=== PATIENT | male | born 1945 | race Caucasian/White ===

== ENCOUNTER 2017-12-19 08:30 | Outpatient (RCR) | payer MEDICARE, SELFPAY ==
--- NOTE | 2017-11-07 15:50 | HP.PTEVAL_ITS ---
Patient's Visit Information MAHESH LOZANO is a 72 year old M referred to Physical Therapy by Ivy Montanez with a diagnosis of RIGHT SHOULDER PAIN. Date of Evaluation: 11/07/17 Physical Therapist: Monique Whitaker - Visit Plan Frequency: 2-3x /Week Duration: 4-6 Weeks Plan: RIGHT SHOULDER US, MH AND CP NEEDED. POSTURE CORRECTION/STRENGTHENING , INSTRUCTION IN APPROPRIATE BODY MECHANICS AND ACTIVITY MODIFICATIONS. RIGHT UE ROM, STRETCHING, MOBILIZATION AND STRENGTHENING. HEP INSTRUCTION. - Subjective Subjective: Diagnosis: RIGHT SHOULDER PAIN. Work/Leisure: RETIRED. LIKES TO GOLF. Disability: NO. Present symptoms: RIGHT LATERAL UPPER ARM/SHOULDER. ABOUT A WEEK AGO WAS GETTING SOME UPPER ARM TINGLING BUT ONLY ONCE. PAIN IS FLEETING. Present since: ABOUT 18 TO 24 MONTHS AGO. Pain Scale: WORST 5/10, LEAST 0/10. Currently: 0/10. Commenced as a result of: STRETCHING OVER HEAD WITH A GOLF CLUB. Symptoms at onset: SHARP RIGHT SHOULDER PAIN. Worse: STRETCHING OVER-HEAD, PUTTING ARM UP ON THE BACK OF ANOTHER CHAIR, REACHING UP AND BACK, TRYING TO ROTATE ARM TO WASH BACK. Better: REST AND AVOIDING AGGREVATING POSITIONS. Disturbed sleep: YES. Previous history/Previous treatment: NONE. NO INJECTIONS. NO RIGHT SHOULDER SURGERY. Dizziness: NO. Tinnitis: NO. Nausea: NO. Difficulty Swollowing: NO. Gait: NORMAL. Accidents: NO. Unexplained weight loss: NO. Imaging: NO. PMH: HISTORY OF DO NECK MANIPULATIONS OVER THE YEARS - DECREASED NECK MOBILITY. IN [facility] HE[facility] OTHERWISE. OTHER: RECENT EPISODE OF BRONCHITIS FOR WHICH HE WAS GIVEN PREDNISONE ABOUT 10 DAYS AGO FOR 5 DAYS. THE PREDNISONE ACTUALLY HELPED HIS SHOULDER PAIN SOME. - Objective Sitting Posture: FAIR. Active Correction of posture: NE. Other Observations : INDEP GAIT AND TRANSFERS. Motor deficit: RIGHT ROTATOR CUFF WEAKNESS COMPARED TO LEFT. UNALBE TO FULLY ELEVATE RIGHT SHOULDER. MID RANGE TESTING OF ROTATOR CUFF WITH MMT'ING IS 4/5. STRONG VANESSA MOBILE HEAVY EQUIPMENT MECHANIC STRENGTH > 90 LBS. NO C/ O INCREASED PAIN WITH MOBILE HEAVY EQUIPMENT MECHANIC STRENGTH TESTING BUT RIGHT SHOULDER MMT'ING DOES PROVOKE RIGHT LATERAL ARM PAIN DISTAL TO AC JT. LUE STRENGTH IS 5/5. RIGHT ELBOW 5/5. Sensory deficit: NO. ROM deficit: SUPINE RIGHT SHOULDER PASSIVE FLEX 135 DEG, ABD 130 DEG, IR 45 DEG AND ER 45 DEG WITH 90 DEG ABD. Cervical Mvmt Loss: Flex: NIL. Pro: NIL. Ext: MOD TO TOSHIA. Ret: TOSHIA. RSB: TOSHIA. LSB: TOSHIA. R Rot: MOD. L Rot: MOD. PATIENT REPORTS STIFFNESS BUT NOT PAIN WITH CERVICAL ROM TESTING. Postural strength: FAIR. Palpation: MILD TENDERNESS RIGHT DELTOID REGION. - Goals Goal 1:: DECREASE C/O RIGHT SHOULDER PAIN Goal Time Frame: 4-6 Weeks Goal 2:: INCREASE PAINFREE RIGHT SHOULDER ROM Goal Time Frame: 4-6 Weeks Goal 3:: INCREASE RIGHT SHOULDER FUNCTIONAL STRENGTH Goal Time Frame: 4-6 Weeks Goal 4:: INDEP HEP Goal Time Frame: 4-6 Weeks - Rehabilitation Potential Rehabilitation Potential: Good - Anticipated Interventions Patient/Client Instruction: Educate patient on: Condition, Plan of Care, Risk Factors, Benefits of Fitness Program For the Purpose of:: To improve self management Therapeutic Exercise to Include: Strength training, Body mechanics, Postural training, Flexibilty training, Passive ROM, Active ROM, Scapular Strength/ Stabilization For the Purpose of:: To improve ability to perform ADL's, To improve ability of physical actions for home/community/work/leisure Manual Therapy Techniques to Include: Mobilization, Soft tissue mobilization Comment: RIGHT SHOULDER Cryotherapy (ice pack, ice massage): Yes Thermo therapy (hot pack): Yes Ultrasound (thermal/non thermal): Yes For the Purpose of:: To decrease pain, To decrease swelling/inflammation, To increase ROM, To improve nutrient delivery to tissue Thank you for the opportunity to evaluate your patient. For Medicare and Medicare HMO plans, please review the plan of care and approve it. It will need to be FAXED BACK to us at [phone] for Medicare purposes. Please let me know if there are questions or concerns regarding this plan of care. Physician Signature: Date:
--- NOTE | 2017-12-19 12:18 | HP.PTDCSUM ---
HP - PT D/C Summary It has been my pleasure to treat MAHESH LOZANO under orders from Ivy Montanez, for the diagnosis of RIGHT SHOULDER PAIN for a total of 7 visit(s). Discharge Date: 12/19/17 Please see the following information for a summary of their discharge status. - Subjective Subjective: NOT HAVING ANY TINGLING. OCCASSIONALLY A TWINGE OF RIGHT SHOULDER PAIN. GOLFED 18 HOLES YESTERDAY AND DIDN'T FEEL ANYTHING DURING OR AFTER GOLF. PATIENT STATES HE CAN WASH HIS BACK BETTER. STATES I HAVE SOME REALLY GOOD EX'S NOW. - Pain R SH Pain Intensity (Out of 10): 0 - Overall Improvement % Improvement: 83 - Objective Objective/Function: PATIENT HAS RESPONDED WELL TO THERAPY AND ALL PT GOALS HAVE BEEN MET BUT HE CONTINUES TO HAVE DECREASED RIGHT SHOULDER PAIINFREE ROM AND STRENGTH COMPARED TO THE LEFT. ROM deficit: SUPINE RIGHT SHOULDER PASSIVE FLEX 165 DEG, SCAPTION IS FULL, IR 60 DEG AND ER 65 DEG WITH 90 DEG ABD. PATIENT HAS C/O PAIN AT THE END OF THE AVIALABLE ROM ALL PLANES. DASH FUNCTIONAL SCREEN HAS IMPROVED FROM 42 TO 33. PATIENT IS INDEP WITH AN EX PROGRAM AND WILL ALSO BE ABLE TO GET HELP AT THE [facility] C[facility] WHERE HE IS MOVING IN ORDER TO TRANSITION SUCCESSFULLY TO THEIR EQUIPMENT. - Goals Goal 1:: DECREASE C/O RIGHT SHOULDER PAIN Goal Progress: Goal Met Goal 2:: INCREASE PAINFREE RIGHT SHOULDER ROM Goal Progress: Goal Met Goal 3:: INCREASE RIGHT SHOULDER FUNCTIONAL STRENGTH Goal Progress: Goal Met Goal 4:: INDEP HEP Goal Progress: Goal Met - Plan Plan: D/C. PATIENT IS MOVING OUT OF STATE. - D/C Information If there are questions or concerns regarding this patient's physical therapy, please feel free to call me at [phone]. Thank you for the referral of this patient. Sincerely, Monique Whitaker
== END 2017-12-19 18:27 | disposition home or self-care (01) ==
LOC: PT 08:30
PROVIDERS: Family Provider Family Medicine; PCP Family Medicine; Visit Provider Family Medicine
DX: M25.511 Pain in right shoulder (principal)
CPT/HCPCS: 97035; 97110; 97162; 97164; 97530

== ENCOUNTER → 2023-12-24 | Outpatient (CLI) | payer MEDICARE, SELFPAY ==
[2023-12-24 16:07] LABS: PSA,Total - Annual Screen 3.18 ng/mL (0.00-4.00)
== END | disposition home or self-care (01) ==
PROVIDERS: Referring Provider Urology; Visit Provider Urology
DX: Z12.5 Encounter for screening for malignant neoplasm of prostate (principal)
CPT/HCPCS: 36415; 84153; G0103

== ENCOUNTER → 2024-02-05 | Outpatient (CLI) | payer MEDICARE, SELFPAY ==
[2024-02-05 15:25] LABS: Erythrocyte Sedimentation Rate 4 mm/hr (0-20)
[2024-02-07 15:09] LABS: Angiotensin Convert Enzyme 39 U/L (14-82)
== END | disposition home or self-care (01) ==
LOC: MTLAB 11:37
PROVIDERS: PCP Nurse Practitioner Adult Health; Referring Provider Internal Medicine Pulmonary Disease; Visit Provider Internal Medicine Pulmonary Disease
DX: D86.9 Sarcoidosis, unspecified (principal)
CPT/HCPCS: 36415; 82164; 85652

== ENCOUNTER 2024-06-04 10:50 | Day surgery (SDC) | payer MEDICARE, SELFPAY ==
--- NOTE | 2024-05-29 09:39 | EKG12_ITS ---
Test Reason : PRE OP Blood Pressure : */* mmHG Vent. Rate : 68 BPM Atrial Rate : 68 BPM P-R Int : 198 ms QRS Dur : 152 ms QT Int : 406 ms P-R-T Axes : 6 34 18 degrees QTcB Int : 431 ms Normal sinus rhythm Right bundle branch block Abnormal ECG Confirmed by Dao Ramos ([id number]), book editor VIKASH DAMIAN ([id number]) on 05/30/2024 6:45:21 AM Referred By: Wale Hermosillo Confirmed By: Dao Ramos
[2024-05-29 10:49] LABS: Hematocrit 44.8 % (40-54); Hemoglobin 14.9 g/dL (13.0-16.5); Mean Corp Hgb Conc 33.3 g/dL (32-36); Mean Corpuscular Hgb 29.7 pg (27.0-32.0); Mean Corpuscular Volume 89.2 fL (80-94); Mean Platelet Vol. 10.1 fl (6.2-12.0); Platelet Count 205 K/mm3 (150-450); RBC Distribution Width CV 12.2 % (11.6-14.6); RBC Distribution Width SD 39.9 fl (35.1-43.9); Red Blood Count 5.02 M/mm3 (4.6-6.2); White Blood Count 6.6 K/mm3 (4.4-11.0)
[2024-05-29 11:11] LABS: Anion Gap 5 (5-15); BUN 24 mg/dL (7-18); BUN/Creat Ratio 23.3 RATIO (10-20); Calcium,Total 9.1 mg/dL (8.5-10.1); Chloride 108 mmol/L (98-107); Creatinine, Serum 1.03 mg/dL (0.70-1.30); EST Glomerular Filtration Rate 74 mL/min (>60); Est Glom Filt Rate - Afr Amer 90 mL/min (>60); Glucose 109 mg/dL (74-106); Sodium Level 142 mmol/L (136-145)
[2024-06-04] VITALS (10 sets, daily range): BP systolic 140–166; BP diastolic 80–95; PULSE 54–64; RESP 14–18; TEMP 36.1–37.1; O2SAT 88–99; BMI 28.0
--- NOTE | 2024-06-04 11:02 | PCM.PRE.AN2 ---
ASA Classification* ASA Classification ASA Classification: 3 Assessment & Plan Anesthesia* Anesthesia Assessment Anesthesia Assessment: Discussed sedation and/or anesthesia options, risks, benefits, and alternatives with patient/parents/legal guardian/POA. Questions invited. The patient/parents/legal guardian/POA seems to understand and agrees to proceed with anesthesia plan. Reviewed the physical assessment, medical history, allergy history and patient home medications list prior to surgery/procedure/anesthetic and documented any changes. Performed airway and anesthesia risk assessments. Anesthesia Type Anesthesia Type: General Anesthesia Focused Assessment* Airway Assessment Mouth opens: >3 cm Mallampati Score: II Focused Labs Anesthesia Preop lab: CBC WBC 6.6 K/mm3 (4.4-11.0) 05/29/24 09:51 RBC 5.02 M/mm3 (4.6-6.2) 05/29/24 09:51 Hgb 14.9 g/dL (13.0-16.5) 05/29/24 09:51 Hct 44.8 % (40-54) 05/29/24 09:51 Plt Count 205 K/mm3 (150-450) 05/29/24 09:51 CHEMISTRY Potassium 4.0 mmol/L (3.5-5.1) 05/29/24 09:51 Sodium 142 mmol/L (136-145) 05/29/24 09:51 BUN 24 mg/dL (7-18) H 05/29/24 09:51 Creatinine 1.03 mg/dL (0.70-1.30) 05/29/24 09:51 Glucose 109 mg/dL (74-106) H 05/29/24 09:51 COAG Pre-Assessment Diagnosis/Proposed Procedure Planned Operative Procedure(s): TURBT SMALL Anesthesia History Anesthesia History - technical translator: Anesthesia History - technical translator Hx Hospitalization No 05/19/24 14:50 Any Problems With Anesthesia No 05/19/24 14:50 Cholinesterase deficiency No 05/19/24 14:50 You/Your Family Experience No 05/19/24 14:50 fever (hyperthermia) with Relationship Recent Exposure to Contagious Disease Does patient have nerve No 05/19/24 14:50 stimulator Patient instructed to have device shut off --Does patient have Pacemaker or ICD? When Was Last Pacemaker Check QUESTION #4 FULL TEXT: You/Your Family Experience fever (hyperthermia) with Anesthesia Last Oral Intake Last Oral intake: Last Oral Intake NPO since Meds taken in AM with sips of water? Meds patient instructed to take am of surgery PONV PONV - technical translator: PONV - technical translator Female No 05/19/24 14:50 HX of Motion Sickness Yes 05/19/24 14:50 HX of N/V After Surgery No 05/19/24 14:50 Non-Smoker Yes 05/19/24 14:50 Duration of Surgery greater Yes 05/19/24 14:50 than 60 minutes Number of Risk Factors 3 05/19/24 14:50 PONV Score Moderate Risk 05/19/24 14:50 Respiratory Assessment Respiratory Assessment - technical translator: Respiratory Tract Infection Hx - technical translator Hx Respiratory Tract Infection No 05/19/24 14:50 STOP Sleep Apnea STOP Sleep Apnea - technical translator: STOP Sleep Apnea - technical translator Hx Hypertension No 05/19/24 14:50 Hx Sleep Apnea No 05/19/24 14:50 CPAP BIPAP Do you snore loudly (louder Yes 05/19/24 14:50 than talking or can be heard Do you often feel tired/ No 05/19/24 14:50 fatigued/ sleepy during daytime? Has anyone observed you stop Yes 05/19/24 14:50 breathing during sleep? STOP Results Positive 05/19/24 14:50 QUESTION #5 FULL TEXT : Do you snore loudly (louder than talking or can be heard through closed doors)? Tobacco Use History Tobacco Use History - technical translator: Tobacco Use History - technical translator Tobacco Use Smoking Status Never smoker 05/19/24 14:50 Hx Tobacco Use No 05/19/24 14:50 Years Smoking Packs Smoked per Day Smoking Cessation Date was within the last 15 years Hx Smoking Cessation Date Hx Smoking Cessation Counseling Hematologic Medial History Hematologic Hx - technical translator: Hematologic Medical Hx - claim analyst Hx of Blood Transfusion No 05/19/24 14:50 Hx of Transfusion in last 3 No 05/19/24 14:50 Months Date of Last Transfusion (if within last 3 months) Ever experience any problems No 05/19/24 14:50 with transfusion(s)? Specify any problems Hx of Preganancy in last 3 N/A 05/19/24 14:50 Months Nurse Filling Out Transfusion DSCHRIBER 05/19/24 14:50 & Questions: Date: 05/19/24 05/19/24 14:50 Time: 14:51 05/19/24 14:50 Patient unable to answer at this time (ie. confused, unrespo /Reproduction History /Reproductive History - technical translator: /Reproductive Hx- technical translator Hx Now No 05/19/24 14:50 Gestational Age (in weeks): EDC: Hx Hx Para Hx Section SAB No 05/19/24 14:50 Active Medications Active Medications: Current Medications Generic Name Dose Route Start Last Admin Trade Name Freq PRN Reason Stop Dose Admin Cefazolin Sodium 2 gm/ N/A 20 mls @ 400 mls/hr 06/04/24 13:15 IV 06/04/24 13:17 PREOP ONE Sodium Chloride 1,000 mls @ 15 mls/hr 06/04/24 11:00 IV 06/10/24 00:19 .Q48H [facility] Protocol PFSH Medical History Wears glasses Bladder disease High cholesterol Sarcoidosis of lung Shortness of breath on exertion Non-smoker Cardiology follow-up encounter History of stress test TIA (transient ischemic attack) Home Medications ?Medication ?Instructions ?Recorded ?Last Taken ?Type clopidogrel 75 mg tablet 75 mg PO DAILY 05/19/24 Unknown History cyanocobalamin (vitamin B-12) 1,000 mcg PO QDAY 05/19/24 Unknown History 1,000 mcg tablet (Vitamin B-12) dutasteride 0.5 mg capsule 0.5 mg PO DAILY 05/19/24 Unknown History multivitamin (Daily Multi-Vitamin 1 tab PO DAILY 05/19/24 Unknown History tablet) rosuvastatin 10 mg tablet 10 mg PO DAILY 05/19/24 Unknown History tadalafil 5 mg tablet 5 mg PO DAILY 05/19/24 Unknown History Allergy/AdvReac Type Severity Reaction Status Date / Time atorvastatin AdvReac Intermediate Other Verified 05/19/24 14:47 Surgical History History of loop recorder Hx of colonoscopy History of transurethral resection of bladder tumor (TURBT) Social History Smoking Status: Never smoker Review of Systems (Anesthesia) ROS Narrative System reviewed and no additional complaints, except as documented.
[2024-06-04] MEDS: 0.9% Normal Saline (1000mL) 1,000 ML 15 ML IV (11:31)
--- NOTE | 2024-06-04 12:37 | PCM.HP.STD ---
HPI - General General Date of Admission: 06/04/24 Chief Complaint: Bladder cancer HPI Narrative MAHESH LOZANO, is a 79 M who presents for transurethral section of a bladder tumor [facility] Medical History Wears glasses Bladder disease High cholesterol Sarcoidosis of lung Shortness of breath on exertion Non-smoker Cardiology follow-up encounter History of stress test TIA (transient ischemic attack) Home Medications ?Medication ?Instructions ?Recorded ?Last Taken ?Type clopidogrel 75 mg tablet 75 mg PO DAILY 05/19/24 05/27/24 History cyanocobalamin (vitamin B-12) 1,000 mcg PO QDAY 05/19/24 06/03/24 History 1,000 mcg tablet (Vitamin B-12) dutasteride 0.5 mg capsule 0.5 mg PO DAILY 05/19/24 06/03/24 History multivitamin (Daily Multi-Vitamin 1 tab PO DAILY 05/19/24 06/03/24 History tablet) rosuvastatin 10 mg tablet 10 mg PO DAILY 05/19/24 Unknown History tadalafil 5 mg tablet 5 mg PO DAILY 05/19/24 06/03/24 History Allergy/AdvReac Type Severity Reaction Status Date / Time atorvastatin AdvReac Intermediate Other Verified 06/04/24 11:18 Surgical History History of loop recorder Hx of colonoscopy History of transurethral resection of bladder tumor (TURBT) Social History Smoking Status: Never smoker Vital Signs Vital Signs Vital Signs: 06/04/24 11:18 06/04/24 11:18 Temperature 96.9 F L Temperature Source Temporal Pulse Rate 60 Respiratory Rate 14 Respiratory Pattern Normal Blood Pressure 159/82 H Blood Pressure Mean 107 Blood Pressure Source Monitor Blood Pressure Position Semi-Fowlers Blood Pressure Location Left Arm Pulse Ox 99 Oxygen Delivery Method Room Air Weight Weight: 86 kg Body Mass Index (BMI) 28.0 Results Lab / Micro Data 05/29/24 09:51 05/29/24 09:51
[2024-06-04] MEDS: Cefazolin 2 GM in Syringe IV (13:02)
--- NOTE | 2024-06-04 13:05 | BLB_PTH ---
PATIENT: MAHESH LOZANO [place] [facility] [place][id number] AGE/SX: 79/M ROOM: RE06/04/[address]: Dr. Wale Hermosillo MD : 1945 BED: DIS: 06/04/2024 SPEC #: [id number] RECD: 06/05/24 07:39 STATUS: MALKA REAlexey #: [id number] DONOVAN: 06/04/24 13:[address]: Wale Hermosillo DEPT: SURGICAL PATHOLOGY RECD BY: Ingrid Khan ENTERED: 06/05/24 12:10 SP TYPE: TURB OTHR DR: ZAHRAA AMADO Tissues: Urinary bladder, NOS Procedures: Surgery Specimen Level V HEADER OPERATION: Transurethral resection bladder PRE-OP DIAGNOSIS: Bladder cancer TISSUE SUBMITTED: Bladder tumor MICROSCOPIC DIAGNOSIS Bladder tumor, transurethral resection: Non-invasive low grade papillary urothelial carcinoma, with focal inverted features. See cancer summary below. PW.mr 06/06/2024 COMMENT BLADDER CANCER (TUR) SUMMARY Procedure: Transurethral resection of bladder tumor (TURBT) Tumor site: Not specified Histologic type: Papillary urothelial carcinoma, non-invasive Associated epithelial lesions: None identified Histologic grade: Low grade Tumor configuration: Non-invasive papillary carcinoma Muscularis propria presence: Not identified Lymphovascular invasion: Not identified Tumor extension: Non-invasive Additional pathologic findings: None identified PATHOLOGIC STAGE: The above summary is in compliance with [employer] (CAP) Cancer Protocols Checklist and [place] Joint Committee on Cancer (AJCC), Staging Manual, 8th Ed. Case has been reviewed in consultation with Dr. Robertsno who concurs with the above diagnosis. IDC:CHRIS MICROSCOPIC DESCRIPTION Slides are reviewed. GROSS DESCRIPTION Received in fixative is one container labeled with the patient's name and designated Bladder tumor. The specimen consists of one irregular fragment of light cagle soft tissue that measures 0.2 x 0.2 x 0.1 cm. The specimen is totally submitted in one cassette. 06/05/2024 TC:0 CPT:39769
--- NOTE | 2024-06-04 13:27 | DCINST_ITS ---
Discharge Instructions Diet Discharge Diet: No restrictions, Light diet - advance as tolerated and Soft diet DC O2, CPAP, BIPAP needs Additional Home O2 Discharge instructions: No Dressing / Incision Discharge Activity: Return to Normal Activity Follow Up Care Please Follow Up With: Wale Hermosillo MD When: 4 weeks Test Results: Test results from this visit will be discussed in further detail at your follow- up appointment, if applicable. Discharge Plan Admission Attending Provider: Wale Hermosillo Primary Care Provider: ROSE FERRERA Instructions Print Language: Burkinan Discharge Orders/Prescriptions Prescriptions: No Action clopidogrel 75 mg tablet 75 mg PO DAILY rosuvastatin 10 mg tablet 10 mg PO DAILY tadalafil 5 mg tablet 5 mg PO DAILY dutasteride 0.5 mg capsule 0.5 mg PO DAILY multivitamin [Daily Multi-Vitamin] Tablet 1 tab PO DAILY cyanocobalamin (vitamin B-12) [Vitamin B-12] 1,000 mcg tablet 1,000 mcg PO QDAY Referrals / Follow Up: ROSE FERRERA CRNP [Primary Care Provider] - Disposition Disposition (needs filled in before D/C Order can be placed): Home, Self Care
--- NOTE | 2024-06-04 13:27 | PCM.OPRPT ---
Operative Report (Standard) Operative Information Date of Procedure: 06/04/24 Pre-Operative Diagnosis: bladder tumor small Post-Operative Diagnosis: same Surgery/Procedure Performed: cysto biopsy of tumor and fulguration of small tumor 1cm marketing operations analyst: No Type of Anesthesia: General RN Documented Start/Stop Times: Operation Date: 06/04/24 13:05 Case Time Into Pre-Op 06/04/24 10:59 Procedure Start Time: 13:16 Procedure Stop Time: 13:28 Select all DRAINS/GRAFTS/IMPLANTS that apply: None Estimated Blood Loss: 0 Specimen collected: Yes Description of specimen(s) removed: biopsy of tumor Description of surgery: Patient presented to the hospital for treatment of a tumor that was found in the bladder with a very large bladder tumor. Patient understands is possible it may not be able to resect the entire tumor. Patient also understands is possible that the patient may need multiple procedures or more invasive procedures to cure him of this cancer. Patient was taken back to the operating room after smooth induction of anesthesia the patient was placed supine on the table. The patient was placed in dorsolithotomy position. The urethra and genitals prepped and draped in usual sterile fashion. I went into the bladder with a 30 degree lens and a cystoscope was performed and identified the tumor the tumors which was about 1 centimeters in size and occupying mostly the rigth of the bladder. I then switched over to the 70 degree lens and inspected the rest of the bladder with a 70 degree lens to make sure there is no other tumors in the bladder and to identify all the tumor locations. The right and left ureteral orifice were identified. The tumor was not involved the ureteral orifices. I then placed the Olympus bipolar resectoscope with a large loop into the bladder. I then started resected the tumor and started superficially shaving small little pieces working my way to the base of the tumor. As I went along I then cauterize any bleeders that were encountered during the resection. The tumor pieces were then flushed out of the bladder and continued resecting the tumor until finally I got down to the base of the tumor. The Ellik was used then to evacuate all the tumor pieces out of the bladder. I then cauterized extensively the tumor base and also circumferentially around where the tumor was. Again we made sure to evacuate all the pieces out the bladder. I made sure there was no more bleeding from the base of the bladder and then over the tumor pieces were then evacuated out and sent off as a specimen. After the resection of the entire tumor the patient was taken back to the PACU in stable condition. Surgical Findings: small tumor in the lateral wall of bladder biopsy taken Complications Complications: No Admit VTE Documentation VTE Present on Admission: No VTE Mechan Device Prophylaxis: SCD's VTE Pharm Prophylaxis ordered?: No
--- NOTE | 2024-06-04 13:44 | PCM.POST.ANE ---
Anesthesia: Postop Eval I Current Vital Signs Temperature: 98.8 F Pulse Rate: 64 Blood Pressure: 154/83 Respiratory Rate: 18 Pulse Ox: 97 Assessment Airway patent: Yes Spontaneous unlabored respirations: Yes nausea: No Vomiting: No Anesthesia Complication: No Fluid Hydration Crystalloid volume administer (ml): 1,000 Total IV fluid infused: 1,000 Progress Note Anesthesia document: Postop Eval 1 completed: Yes
--- NOTE | 2024-06-04 14:17 | POSTOPAN2_ITS ---
Anesthesia Postop Eval I Sum Postop Eval Completion status Anesthesia document: Postop Eval 1 completed: Yes Anesthesia Postop Eval I Summary Anesthesia Postop Eval I Summary: Anesthesia Postop Eval I: Assessment Summary Airway patent Yes 06/04/24 13:44 OFFICE TECHNOLOGY PROFESSOR.CSIR Spontaneous unlabored Yes 06/04/24 13:44 OFFICE TECHNOLOGY PROFESSOR.CSIR respirations Mental status nausea No 06/04/24 13:44 OFFICE TECHNOLOGY PROFESSOR.CSIR Vomiting No 06/04/24 13:44 OFFICE TECHNOLOGY PROFESSOR.CSIR Anesthesia Postop Eval I: Fluid Summary Crystalloid volume administer 1,000 06/04/24 13:44 OFFICE TECHNOLOGY PROFESSOR.CSIR (ml) Colloids volume administered ( ml) Blood Product volume administered (ml) Total IV fluid infused 1,000 06/04/24 13:44 OFFICE TECHNOLOGY PROFESSOR.CSIR Anesthesia Postop Eval I: Summary Notes Anesthesia Complication No 06/04/24 13:44 OFFICE TECHNOLOGY PROFESSOR.CSIR Anesthesia Complication Comment: Post-operative progress note Anesthesia: Postop Eval II Evaluation Mental status: Awake Pain Level: 1 nausea: No Vomiting: No
--- NOTE | 2024-06-04 14:17 | PCM.POSTANE2 ---
Anesthesia Postop Eval I Sum Postop Eval Completion status Anesthesia document: Postop Eval 1 completed: Yes Anesthesia Postop Eval I Summary Anesthesia Postop Eval I Summary: Anesthesia Postop Eval I: Assessment Summary Airway patent Yes 06/04/24 13:44 LICENSED PHYSICAL THERAPIST.CSIR Spontaneous unlabored Yes 06/04/24 13:44 LICENSED PHYSICAL THERAPIST.CSIR respirations Mental status nausea No 06/04/24 13:44 LICENSED PHYSICAL THERAPIST.CSIR Vomiting No 06/04/24 13:44 LICENSED PHYSICAL THERAPIST.CSIR Anesthesia Postop Eval I: Fluid Summary Crystalloid volume administer 1,000 06/04/24 13:44 LICENSED PHYSICAL THERAPIST.CSIR (ml) Colloids volume administered ( ml) Blood Product volume administered (ml) Total IV fluid infused 1,000 06/04/24 13:44 LICENSED PHYSICAL THERAPIST.CSIR Anesthesia Postop Eval I: Summary Notes Anesthesia Complication No 06/04/24 13:44 LICENSED PHYSICAL THERAPIST.CSIR Anesthesia Complication Comment: Post-operative progress note Anesthesia: Postop Eval II Evaluation Mental status: Awake Pain Level: 1 nausea: No Vomiting: No
== END 2024-06-04 15:24 | disposition home or self-care (01) ==
LOC: SDC 10:55 → AC 10:58
PROVIDERS: Anesthesiology; PCP Nurse Practitioner Adult Health; Referring Provider Urology; Visit Provider Urology
PROC: 0TBB8ZZ Excision of Bladder, Via Natural or Artificial Opening Endoscopic (ICD-10-PCS; CPT 52234; principal; 2024-06-04 12:55)
DX: C67.8 Malignant neoplasm of overlapping sites of bladder (principal); E78.00 Pure hypercholesterolemia, unspecified; N40.1 Benign prostatic hyperplasia with lower urinary tract symptoms; R32 Unspecified urinary incontinence; R35.0 Frequency of micturition; R39.12 Poor urinary stream; R35.1 Nocturia; Z79.02 Long term (current) use of antithrombotics/antiplatelets; Z79.899 Other long term (current) drug therapy; Z86.73 Personal history of transient ischemic attack (TIA), and cerebral infarction without residual deficits
CPT/HCPCS: 52234; 00912; 36415; 80048; 85027; 88307; 93005; J2405

== ENCOUNTER → 2025-05-04 | Outpatient (CLI) | payer MEDICARE, SELFPAY ==
--- NOTE | 2025-05-04 10:02 | CT_ITS ---
PROCEDURE: CT/Abdomen/Pelvis without Cont
== END | disposition home or self-care (01) ==
PROVIDERS: PCP Nurse Practitioner Adult Health; Referring Provider Urology; Visit Provider Urology
DX: N20.0 Calculus of kidney (principal)
CPT/HCPCS: 74176

== ENCOUNTER 2025-05-08 08:45 | Day surgery (SDC) | payer MEDICARE, SELFPAY ==
--- NOTE | 2025-05-05 15:10 | PAT.ANE_ITS ---
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 When Was Last Pacemaker Check QUESTION #4 FULL TEXT: You/Your Family Experience fever (hyperthermia) with Anesthesia Last Oral Intake Last Oral intake: Last Oral Intake NPO since Meds taken in AM with sips of water? Meds patient instructed to take am of surgery PONV PONV - swage toolsetter: PONV - swage toolsetter Female No 05/05/25 13:13 HX of Motion Sickness No 05/05/25 13:13 HX of N/V After Surgery No 05/05/25 13:13 Non-Smoker Yes 05/05/25 13:13 Duration of Surgery greater Yes 05/05/25 13:13 than 60 minutes Number of Risk Factors 2 05/05/25 13:13 PONV Score Moderate Risk 05/05/25 13:13 Height & Weight Height & Weight: Anesthesia: Height & Weight Height 5 ft 9 in 06/04/24 11:18 Respiratory Assessment Respiratory Assessment - swage toolsetter: Respiratory Tract Infection Hx - swage toolsetter Hx Respiratory Tract Infection No 05/05/25 13:13 STOP Sleep Apnea STOP Sleep Apnea - swage toolsetter: STOP Sleep Apnea - swage toolsetter Hx Hypertension No 05/05/25 13:13 Hx Sleep Apnea No 05/05/25 13:13 CPAP BIPAP Do you snore loudly (louder Yes 05/05/25 13:13 than talking or can be heard Do you often feel tired/ No 05/05/25 13:13 fatigued/ sleepy during daytime? Has anyone observed you stop No 05/05/25 13:13 breathing during sleep? STOP Results Negative 05/05/25 13:13 QUESTION #5 FULL TEXT : Do you snore loudly (louder than talking or can be heard through closed doors)? 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 Specify any problems Hx of Preganancy in last 3 N/A 05/05/25 13:13 Months Nurse Filling Out Transfusion DSCHRIBER 05/05/25 13:13 & Questions: Date: 05/05/25 05/05/25 13:13 Time: 13:14 05/05/25 13:13 Patient unable to answer at this time (ie. confused, unrespo /Reproduction History /Reproductive History - swage toolsetter: /Reproductive Hx- swage toolsetter Hx Now No 05/05/25 13:13 Gestational Age (in weeks): EDC: Hx Hx Para Hx Section SAB No 05/05/25 13:13 Does the father of the baby or his family experience fever w Father of the baby Malignant Hypertension history comment PFSH Medical History (Updated 05/05/25 @ 13:21 by Barbara Jordan) Cancer Bladder disease High cholesterol Sarcoidosis of lung Shortness of breath on exertion Non-smoker Cardiology follow-up encounter History of stress test TIA (transient ischemic attack) Home Medications Medication Instructions Recorded Last Taken Type clopidogrel 75 mg tablet 75 mg PO DAILY 05/19/2404/25 History dutasteride 0.5 mg capsule 0.5 mg PO DAILY 05/19/24 History multivitamin (Daily Multi-Vitamin 1 tab PO DAILY 05/1906/03/24 History tablet) rosuvastatin 10 mg tablet 10 mg PO DAILY 05/19/24 Unkn own History tadalafil 5 mg tablet 5 mg PO DAILY 05/19/2406/03 History tamsulosin 0.4 mg capsule 0.4 mg PO QHS 05/05/25 Unkno wn History Allergy/AdvReac Type Severity Reaction Status Date / Time atorvastatin AdvReac Intermediate Other Verified 05/05/25 13:09 Surgical History (Updated 05/05/25 @ 13:21 by Barbara Jordan) Hx of left cataract extraction Hx of right cataract extraction History of loop recorder Hx of colonoscopy History of transurethral resection of bladder tumor (TURBT) Social History Smoking Status: Never smoker Audit: Pertinent Findings Pertinent Findings Echo (EF%) pertinent findings: 03/2024: LVEF 55-60%, no RWAs, MV mildly calfiied, mild MR. Recommendation Anesthesia Recommendation Anesthesia recommendation: OPTIMIZED for anesthesia (EKG on DOS. Anesthesia approval dependent upon anesthesiologist evaluation on DOS. ) Follow up Details Cardiac/Pulmonary Imaging Recommendation: Yes Cadiac/Pulmonary Imaging Rec Details: EKG on DOS
[2025-05-08] VITALS (9 sets, daily range): BP systolic 125–167; BP diastolic 76–100; PULSE 54–75; RESP 12–16; TEMP 36.1; O2SAT 92–100; BMI 27.0
[2025-05-08] MEDS: Lactated Ringers 1,000 ML 15 ML IV (09:10)
--- NOTE | 2025-05-08 09:36 | PRE.ANES_ITS ---
ASA Classification* ASA Classification ASA Classification: 3 Assessment & Plan Anesthesia* Anesthesia Assessment Anesthesia Assessment: Discussed sedation and/or anesthesia options, risks, benefits, and alternatives with patient/parents/legal guardian/POA. Questions invited. The patient/parents/legal guardian/POA seems to understand and agrees to proceed with anesthesia plan. Reviewed the physical assessment, medical history, allergy history and patient home medications list prior to surgery/procedure/anesthetic and documented any changes. Performed airway and anesthesia risk assessments. Anesthesia Type Anesthesia Type: General History Source History Obtained from:: Patient and Chart Anesthesia Focused Assessment* Temperature: 97 F Pulse Rate: 75 Blood Pressure: 139/83 Respiratory Rate: 16 Pulse Ox: 96 Oxygen Delivery Method: Room Air Airway Assessment Mouth opens: >3 cm Mallampati Score: III Teeth Condition: Caps/Crowns (Patient has several crowns. They are all tight.) Neck Range of motion (ROM): Limited ROM (Somewhat Decreased) Labs Anesthesia Preop lab: CBC WBC, (4.4-11.0) 6.6 K/mm3 05/29/24, 09:51 RBC, (4.6-6.2) 5.02 M/mm3 05/29/24, 09:51 Hgb, (13.0-16.5) 14.9 g/dL 05/29/24, 09:51 Hct, (40-54) 44.8 % 05/29/24, 09:51 Plt Count, (150-450) 205 K/mm3 05/29/24, 09:51 CHEMISTRY Potassium, (3.5-5.1) 4.0 mmol/L 05/29/24, 09:51 Sodium, (136-145) 142 mmol/L 05/29/24, 09:51 BUN, (7-18) 24 mg/dL H 05/29/24, 09:51 Creatinine, (0.70-1.30) 1.03 mg/dL 05/29/24, 09:51 Glucose, (74-106) 109 mg/dL H 05/29/24, 09:51 COAG Pre-Assessment Diagnosis/Proposed Procedure Planned Operative Procedure(s): LEFT URETEROSCOPY LASER STENT Anesthesia History Anesthesia History - distributor publications: Anesthesia History - distributor publications Hx Hospitalization No 05/05/25 13:13 Any Problems With Anesthesia No 05/05/25 13:13 Cholinesterase deficiency No 05/05/25 13:13 You/Your Family Experience No 05/05/25 13:13 fever (hyperthermia) with Relationship Recent Exposure to Contagious No 05/08/25 09:02 Disease Does patient have nerve No 05/05/25 13:13 stimulator Patient instructed to have device shut off --Does patient have Pacemaker No 05/08/25 09:02 or ICD? When Was Last Pacemaker Check QUESTION #4 FULL TEXT: You/Your Family Experience fever (hyperthermia) with Anesthesia Last Oral Intake Last Oral intake: Last Oral Intake NPO since 21:00 05/08/25 09:02 Meds taken in AM with sips of No 05/08/25 09:02 water? Meds patient instructed to take am of surgery PONV PONV - distributor publications: PONV - distributor publications Female No 05/05/25 13:13 HX of Motion Sickness No 05/05/25 13:13 HX of N/V After Surgery No 05/05/25 13:13 Non-Smoker Yes 05/05/25 13:13 Duration of Surgery greater Yes 05/05/25 13:13 than 60 minutes Number of Risk Factors 2 05/05/25 13:13 PONV Score Moderate Risk 05/05/25 13:13 Height & Weight Height & Weight: Anesthesia: Height & Weight Height 5 ft 9 in 05/08/25 09:02 Weight: 83 kg 05/08/25 09:02 Body Mass Index (BMI) 27.0 05/08/25 09:02 Respiratory Assessment Respiratory Assessment - distributor publications: Respiratory Tract Infection Hx - distributor publications Hx Respiratory Tract Infection No 05/05/25 13:13 STOP Sleep Apnea STOP Sleep Apnea - distributor publications: STOP Sleep Apnea - distributor publications Hx Hypertension No 05/05/25 13:13 Hx Sleep Apnea No 05/05/25 13:13 CPAP BIPAP Do you snore loudly (louder Yes 05/05/25 13:13 than talking or can be heard Do you often feel tired/ No 05/05/25 13:13 fatigued/ sleepy during daytime? Has anyone observed you stop No 05/05/25 13:13 breathing during sleep? STOP Results Negative 05/05/25 13:13 QUESTION #5 FULL TEXT : Do you snore loudly (louder than talking or can be heard through closed doors)? 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 Specify any problems Hx of Preganancy in last 3 N/A 05/05/25 13:13 Months Nurse Filling Out Transfusion DSCHRIBER 05/05/25 13:13 & Questions: Date: 05/05/25 05/05/25 13:13 Time: 13:14 05/05/25 13:13 Patient unable to answer at this time (ie. confused, unrespo /Reproduction History /Reproductive History - distributor publications: /Reproductive Hx- distributor publications Hx Now No 05/05/25 13:13 Gestational Age (in weeks): EDC: Hx Hx Para Hx Section SAB No 05/05/25 13:13 Does the father of the baby or his family experience fever w Father of the baby Malignant Hypertension history comment Active Medications Active Medications: Current Medications Generic Name Dose Route Start Last Admin Trade Name Freq PRN Reason Stop Dose Admin Lactated Ringer's 1,000 mls @ 15 mls/hr 05/08/25 09:00 05/08/25 09:10 IV 15 mls/hr .Q48H JANUARY Administration PFSH Medical History Cancer Bladder disease High cholesterol Sarcoidosis of lung Shortness of breath on exertion Non-smoker Cardiology follow-up encounter History of stress test TIA (transient ischemic attack) Home Medications Medication Instructions Recorded Last Taken Type clopidogrel 75 mg tablet 75 mg PO DAILY 05/19/2404/25 History dutasteride 0.5 mg capsule 0.5 mg PO DAILY 05/19/24 History multivitamin (Daily Multi-Vitamin 1 tab PO DAILY 05/1905/07/25 History tablet) rosuvastatin 10 mg tablet 10 mg PO DAILY 05/19/2404/25 History tadalafil 5 mg tablet 5 mg PO DAILY 05/19/2405/07 History tamsulosin 0.4 mg capsule 0.4 mg PO QHS 05/05/2505/07 History azelastine 0.05 % eye drops 1 drp ophthalmic (eye) BID 05/08/25 05/07/25 History Allergy/AdvReac Type Severity Reaction Status Date / Time atorvastatin AdvReac Intermediate Other Verified 05/05/25 13:09 Surgical History Hx of left cataract extraction Hx of right cataract extraction History of loop recorder Hx of colonoscopy History of transurethral resection of bladder tumor (TURBT) Social History Smoking Status: Never smoker Review of Systems (Anesthesia) ROS Narrative System reviewed and no additional complaints, except as documented.
--- NOTE | 2025-05-08 10:15 | PCM.DC ---
Discharge Instructions DC O2, CPAP, BIPAP needs Home O2 Discharge instructions: No Dressing / Incision Discharge Activity: Return to Normal Activity and May Not Drive (while taking narcotic pain medications.) Dressing / Incision Call your doctor if you observe: Fever of 101 or Higher Follow Up Care Please Follow Up With: Wale Hermosillo MD When: Call [phone] for an appointment, next sunday to d/c stent Test Results: Test results from this visit will be discussed in further detail at your follow-up appointment, if applicable. Discharge Plan Admission Primary Reason for Your Visit: laser stone stent left Attending Provider: Wale Hermosillo Primary Care Provider: ROSE FERRERA Instructions Patient Instructions: Laser Lithotripsy: Pre-op, Laser Lithotripsy: Post-op, Kidney Stone Ureteroscopy Print Language: Setswana Discharge Orders/Prescriptions Prescriptions: New phenazopyridine [Pyridium] 100 mg tablet 100 mg PO TID 6 Days Qty: 18 0RF ciprofloxacin HCl 500 mg tablet 500 mg PO BID Qty: 10 0RF Continued tamsulosin 0.4 mg capsule 0.4 mg PO QHS azelastine 0.05 % drops 1 drp ophthalmic (eye) BID clopidogrel 75 mg tablet 75 mg PO DAILY rosuvastatin 10 mg tablet 10 mg PO DAILY tadalafil 5 mg tablet 5 mg PO DAILY dutasteride 0.5 mg capsule 0.5 mg PO DAILY multivitamin [Daily Multi-Vitamin] Tablet 1 tab PO DAILY Referrals / Follow Up: Wale Hermosillo MD [Med Staff - Active Staff, Urology] ROSE FERRERA CRNP [Primary Care Provider, Family Practice] Disposition Disposition (needs filled in before D/C Order can be placed): Home, Self Care
[2025-05-08] MEDS: Cefazolin 1 GM/5 ML Vial 2 GM IV (10:25)
[2025-05-08] MEDS: Lidocaine 1% (5 ml sdv) 5 ML Vial IV (10:27)
[2025-05-08] MEDS: fentaNYL 100 MCG/2 ML Ampul 50 MCG IV (10:27)
--- NOTE | 2025-05-08 10:57 | OP.PCM_ITS ---
Operative Report (Standard) Operative Information Date of Procedure: 05/08/25 Pre-Operative Diagnosis: Left ureteral calculi Post-Operative Diagnosis: The same Surgery/Procedure Performed: Cystoscopy, balloon dilation of the ureter, left retrograde pyelogram, left ureteroscopy laser lithotirpsy and stent acute care registered nurse: No Type of Anesthesia: General RN Documented Start/Stop Times: Operation Date: 05/08/25 10:50 Case Time Into Pre-Op 05/08/25 08:50 Procedure Start Time: 10:31 Procedure Stop Time: 10:58 Select all DRAINS/GRAFTS/IMPLANTS that apply: None Estimated Blood Loss: minimal Specimen collected: No Description of surgery: This is a patient who presents to the hospital for treatment for an obstructing ureter calculi. I discussed with the patient how the surgery would be performed and we reviewed the risks and benefits of the surgery. The risk and benefits include the risk of failure to remove the stone completely and that the patient may need multiple procedures. We discussed the risk of an infection, the risk of bleeding. We discussed the very rare risk of serious complicated injury to the ureter. The patient understands that if the stone is not able to be removed safely that we may abort the procedure and place a stent. After full discussion and all questions address with the patient the consent form was signed the side was marked appropriately and the patient was taken back to the operating room for the procedure. The patient was taken back to the operating room. After induction of anesthesia by the anesthesiology team the patient was placed in dorsolithotomy position. The genitals were prepped and draped in usual sterile fashion. I went into the bladder with a 21 Green[place]ic rigid cystourethroscope through the urethra. Upon entering the bladder I inspected the trigone the left and right ureteral orifice and the bladder itself. I then cannulated the left ureteral orifice and advanced a 0.038 Glidewire up into the kidney. Then over the Glidewire I advanced a 5 Fr Ureteral catheter and performed a retrograde pyelogram with about 10cc of contrast, to delineate the anatomy and identify the stone location. Then a ureteral balloon dilator was advanced over the wire and the distal ureter was balloon dilated with a 12 Fr x 5cm balloon dilator. After 3 minutes of dilating the ureter the balloon was backloaded off the 0.038 glidewire over the 0.038 guidewire I went in with the flexible 7.5fr ureteroscope. I was able to go inside with the 7.5Fr utereroscope and I pulled out the guidewire and then through the ureteroscope I engage the stone in the ureter and pushed it up to the kidney and then with laser lithotripsy using a 270miron laser fiber with energy setting of 100 Hertz and 0.2 J until the stone was lasered into tiny little pieces that should pass on their own. A retrograde pyelogram was performed with 10cc of contrast and no extravasation of contrast or perforation was identified in the ureter there was some mild irritation of the ureter where the stone was located. I then backed out of the ureter left the wire in place and then over the 0.038 guidewire I placed a double coiled pigtail ureteral stent. The ureteral stent was advanced over the 0.038 guidewire under direct fluoroscopic guidance and direct cystoscopic visual guidance, once the stent was in good position I pulled the wire and the stent coiled in the kidney and bladder in good position. I then drained the patient's bladder and the cystoscope was removed and the patient was taken back to the recovery room in good position. The patient was given discharge instructions to call the office for instructions on when to come to the office to have the stent removed. Surgical Findings: stone lasered completely, left stent placed Complications Complications: No Admit VTE Documentation VTE Present on Admission: No VTE Mechan Device Prophylaxis: SCD's VTE Pharm Prophylaxis ordered?: No
--- NOTE | 2025-05-08 11:06 | PCM.POST.ANE ---
Anesthesia: Postop Eval I Current Vital Signs Temperature: 97 F Pulse Rate: 54 Blood Pressure: 156/83 Respiratory Rate: 12 Pulse Ox: 93 Oxygen Delivery Method: Room Air Assessment Airway patent: Yes Spontaneous unlabored respirations: Yes Mental status: Calm and Asleep nausea: No Vomiting: No Anesthesia Complication: No Fluid Hydration Crystalloid volume administer (ml): 800 Total IV fluid infused: 800 Progress Note Anesthesia document: Postop Eval 1 completed: Yes
--- NOTE | 2025-05-08 13:30 | POSTOPAN2_ITS ---
Anesthesia Postop Eval I Sum Postop Eval Completion status Anesthesia document: Postop Eval 1 completed: Yes Anesthesia Postop Eval I Summary Anesthesia Postop Eval I Summary: Anesthesia Postop Eval I: Assessment Summary Airway patent Yes 05/08/25 11:07 [email or web address] Spontaneous unlabored Yes 05/08/25 11:07 [email or web address] respirations Mental status Calm,Asleep 05/08/25 11:07 [email or web address] nausea No 05/08/25 11:07 KIT [email or web address] Vomiting No 05/08/25 11:07 KIT [email or web address] Anesthesia Postop Eval I: Fluid Summary Crystalloid volume administer 800 05/08/25 11:07 KIT [email or web address] (ml) Colloids volume administered ( ml) Blood Product volume administered (ml) Total IV fluid infused 800 05/08/25 11:07 [email or web address] Anesthesia Postop Eval I: Summary Notes Anesthesia Complication No 05/08/25 11:07 [email or web address] [email or web address] Anesthesia Complication Comment: Post-operative progress note Anesthesia: Postop Eval II Evaluation Mental status: Awake and Calm Pain Level: 0 nausea: No Vomiting: No Complications Anesthesia Complication: No
--- NOTE | 2025-05-08 13:30 | PCM.POSTANE2 ---
Anesthesia Postop Eval I Sum Postop Eval Completion status Anesthesia document: Postop Eval 1 completed: Yes Anesthesia Postop Eval I Summary Anesthesia Postop Eval I Summary: Anesthesia Postop Eval I: Assessment Summary Airway patent Yes 05/08/25 11:07 AUTOMATION [email or web address] Spontaneous unlabored Yes 05/08/25 11:07 AUTOMATION [email or web address] respirations Mental status Calm,Asleep 05/08/25 11:07 AUTOMATION [email or web address] nausea No 05/08/25 11:07 AUTOMATION [email or web address] Vomiting No 05/08/25 11:07 AUTOMATION [email or web address] Anesthesia Postop Eval I: Fluid Summary Crystalloid volume administer 800 05/08/25 11:07 AUTOMATION [email or web address].SHOF (ml) Colloids volume administered ( ml) Blood Product volume administered (ml) Total IV fluid infused 800 05/08/25 11:07 AUTOMATION [email or web address] Anesthesia Postop Eval I: Summary Notes Anesthesia Complication No 05/08/25 11:07 AUTOMATION [email or web address] Anesthesia Complication Comment: Post-operative progress note Anesthesia: Postop Eval II Evaluation Mental status: Awake and Calm Pain Level: 0 nausea: No Vomiting: No Complications Anesthesia Complication: No
== END 2025-05-08 12:26 | disposition home or self-care (01) ==
LOC: SDC 08:48 → AC 08:51
PROVIDERS: PCP Nurse Practitioner Adult Health; Referring Provider Urology; Visit Provider Urology
DX: N20.1 Calculus of ureter (principal); C67.8 Malignant neoplasm of overlapping sites of bladder; N40.1 Benign prostatic hyperplasia with lower urinary tract symptoms; R32 Unspecified urinary incontinence; R39.12 Poor urinary stream; R35.0 Frequency of micturition; R35.1 Nocturia; Z79.02 Long term (current) use of antithrombotics/antiplatelets; Z79.899 Other long term (current) drug therapy; Z86.73 Personal history of transient ischemic attack (TIA), and cerebral infarction without residual deficits
CPT/HCPCS: 52356; 00918; C1769; C2617; J2405